=== PATIENT | female | born 1945 | race Caucasian/White ===

== ENCOUNTER → 2021-03-30 | Outpatient (CLI) | payer MEDICARE, OTHER ==
[~2021-03-30] MED LIST: ALLEGRA ALLERG180 MG PO; ASPIR 8181 MG PO; B-125000 MCG SL; CORDARONE 200M200 MG PO; COUMADIN4 MG PO; COUMADIN5 MG PO; ELIQUIS 5 MG TAB5 MG PO; LISINOPRIL5 MG PO; MULTAQ400 MG PO; PRADAXA 150 MG150 MG PO; PRINIVIL5 MG PO; SIMVASTATIN20 MG PO; VITAMIN D34000 UNIT PO
== END ==
LOC: HEART 5 03-24 15:30
DX: I48.0 Paroxysmal atrial fibrillation (principal)
CPT/HCPCS: 93306

== ENCOUNTER → 2021-04-08 | Outpatient (CLI) | payer MEDICARE, OTHER | LOC: HEART 5 09:50 | DX: R06.02 Shortness of breath (principal); I48.0 Paroxysmal atrial fibrillation; Z79.899 Other long term (current) drug therapy; R94.2 Abnormal results of pulmonary function studies | CPT/HCPCS: 94010; 94729 ==

== ENCOUNTER 2021-11-24 11:03 | Emergency (ER) | payer MEDICARE, OTHER ==
[2021-11-24 12:07] LABS: HEMOGLOBIN 13.3 gm/dl (12.3-15.3); RED BLOOD COUNT 4.81 M/UL (4.00-5.10); WHITE BLOOD COUNT 6.3 K/UL (4.5-11.0)
[2021-11-24 12:34] LABS: BUN/CREATININE RATIO 21 (0-10)
[2021-11-24] MEDS ORDERED: Voltaren Gel 1 % TOP (14:57)
== END 2021-11-24 15:41 | disposition home or self-care (01) ==
LOC: ER1 11:03
PROVIDERS: Physician Assistant Medical
DX: R00.2 Palpitations (principal); M25.561 Pain in right knee; I11.9 Hypertensive heart disease without heart failure; Z88.5 Allergy status to narcotic agent
CPT/HCPCS: 71045; 73564; 80053; 82550; 82553; 83735; 83880; 84100; 84439; 84443; 84484; 85025; 85610; 93005; 99285; J7040